=== PATIENT | female | born 1975 | race Caucasian/White ===

== ENCOUNTER 2016-02-21 05:33 | Day surgery (SDC) | payer MEDICAID ==
[~2016-02-21] VITALS: Ht 147.3 cm; Wt 50.7 kg
[2016-02-21] VITALS (13 sets, daily range): BP systolic 94–106; BP diastolic 55–71; PULSE 64–89; RESP 15–22; Ht 147.3 cm; Wt 50.7 kg
[~2016-02-21 05:33] MED LIST: FERR325C PO; PREN1TAB62 PO
[2016-02-21] MEDS ORDERED: CEFAZOLIN 2 GM/50 ML (PMX) 50 ML IVPB ONE (06:00)
[2016-02-21] MEDS ORDERED: LACTATED RINGER'S 1,000 ML IV* SCH (06:00)
[2016-02-21] MEDS ORDERED: BUPIVACAINE 0.25%/EPI (SDV) 30 ML INJ ONE (06:24)
[2016-02-21 06:29] LABS: INR 0.9; PROTIME 12.1 Sec (12.2-14.2); PT RATIO 0.9
[2016-02-21 06:34] LABS: BASOPHILS % 0.4 % (0.0-2.0); EOSINOPHILS # 0.1 10^3/ul (0.0-0.5); EOSINOPHILS % 2.1 % (0.0-7.0); HEMATOCRIT 37.5 % (37.0-47.0); HEMOGLOBIN 12.8 g/dl (12.0-16.0); LYMPHOCYTES # 1.6 10^3/ul (0.8-2.9); LYMPHOCYTES % 23.2 % (15.0-51.0); MEAN CORPUSCULAR HEMOGLOBIN 30.7 pg (29.0-33.0); MEAN CORPUSCULAR HGB CONC 34.2 g/dl (32.0-37.0); MEAN CORPUSCULAR VOLUME 89.7 fl (82.0-101.0); MEAN PLATELET VOLUME 10.7 fl (7.4-10.4); MONOCYTE # 0.4 10^3/ul (0.3-0.9); NEUTROPHIL # 4.7 10^3/ul (1.6-7.5); NEUTROPHILS % 68.3 % (39.0-77.0); PLATELET COUNT 170 10^3/UL (140-440); RED BLOOD COUNT 4.18 10^6/ul (4.20-5.40); RED CELL DISTRIBUTION WIDTH 12.7 % (11.5-14.5); UNCORRECTED WBC 6.9 10^3/ul (4.8-10.8); WHITE BLOOD COUNT 6.9 10^3/ul (4.8-10.8)
[2016-02-21 06:40] LABS: CONDITION 1
[2016-02-21 06:47] LABS: PARTIAL THROMBOPLASTIN TIME 24.3 Sec (25.0-35.0)
[2016-02-21] MEDS ORDERED: MIDAZOLAM 1 MG/ML 2 ML INJ ONE (07:44)
[2016-02-21] MEDS ORDERED: FENTAnyl 50 MCG/ML VIAL ONE (07:44)
[2016-02-21] MEDS ORDERED: ROCURONIUM 50 MG INJ ONE (07:44)
[2016-02-21] MEDS ORDERED: PROPOFOL 20 ML ONE (07:44)
[2016-02-21] MEDS ORDERED: DEXAMETHASONE 4 MG/ML 1 ML INJ ONE (07:48)
[2016-02-21] MEDS ORDERED: ONDANSETRON 4 MG INJ ONE (07:48)
[2016-02-21] MEDS ORDERED: BUPIVACAINE 0.25%/EPI (SDV) 30 ML INJ INJ ONE (07:49)
[2016-02-21] MEDS ORDERED: CEFAZOLIN 1 GM INJ ONE (08:01)
[2016-02-21] MEDS ORDERED: MIDAZOLAM 1 MG/ML 2 ML INJ IV PRN (08:30)
[2016-02-21] MEDS ORDERED: ONDANSETRON 4 MG INJ IV PRN (08:30)
[2016-02-21] MEDS ORDERED: MEPERIDINE 25 MG INJ IV PRN (08:30)
[2016-02-21] MEDS ORDERED: GLYCOPYRROLATE 0.4 MG INJ ONE (08:30)
[2016-02-21] MEDS ORDERED: NEOSTIGMINE 3 MG/3 ML SYRINGE ONE (08:30)
[2016-02-21] MEDS ORDERED: morphine (1 MG/ML) 10ML SYRINGE IV PRN ×3 (08:30)
[2016-02-21] MEDS ORDERED: EPHEDrine SULFATE 50 MG/5 ML SYG IV PRN (08:30)
[2016-02-21] MEDS ORDERED: KETOROLAC 30 MG INJ IV ONE (08:30)
[2016-02-21] MEDS ORDERED: DIPHENHYDRAMINE 50 MG INJ IV PRN (08:30)
--- NOTE | 2016-02-21 09:38 | OPR ---
DATE OF OPERATION: PREOPERATIVE DIAGNOSIS: The patient desires permanent sterilization. POSTOPERATIVE DIAGNOSIS: The patient desires permanent sterilization. PROCEDURE: Laparoscopic tubal fulguration and transection. SURGEON: Nicole Lucas MD BUSINESS ANALYST PROJECT MANAGER: None. ESTIMATED BLOOD LOSS: Minimal. COMPLICATIONS: None. FINDINGS: Normal uterus, normal tubes and ovaries bilaterally. She was taken to the operating room and general anesthesia was induced. She was prepped and draped in the usual sterile fashion. The anterior lip of the cervix was grasped using a single tooth tenaculum. The HUMI was inserted in nor mal fashion. The tenaculum was removed. There was no bleeding. Gloves were changed. Marcaine 0.2 5% with epinephrine was injected at the umbilicus. A small periumbilical incision was developed and a blunt trocar was inserted in normal fashion. Intraperitoneal position was confirmed using the la paroscope. Pneumoperitoneum was obtained. The patient placed in a Trendelenburg position. Second trocar was inserted under direct visualization of the laparoscope above the pubic symphysis, after l ocal Marcaine was injected. A 5-cm midampullary area of the right tube was coagulated. Complete de siccation of the entire diameter of the tube was visualized. Middle of the coagulated portion was c ut. There was no bleeding. Same procedure was done on the contralateral side. All instruments and pneumoperitoneum were released and there was no bleeding. The skin was closed using 4-0 Monocryl. The patient tolerated the procedure well. The HUMI was removed. She was placed in the supine posi tion. Dictated By: NICOLE CONTI/LB Conf#: [id number] DID#: [id number]
--- NOTE | 2016-02-21 13:42 | RADRPT ---
Vent Rate: 74 bpm RR Interval: 0 msec [place] Interval: 128 msec QRS Duration: 82 msec QT Interval: 388 msec QTC Interval: 430 msec P-R-T [place]: 64 - 88 - 69 degrees Normal sinus rhythm Normal ECG Electronically Signed By: John Askew [id number]
== END 2016-02-21 10:55 | disposition home or self-care (01) ==
LOC: SDS 05:33
PROVIDERS: ATTEND Specialist
DX: Z30.2 Encounter for sterilization (principal)
CPT/HCPCS: 58670; 84703; 85025; 85610; 85730; 93005; J0690; J1100; J1885; J2250; J2405; J3010; Z7512; Z7610; J2710